=== PATIENT | female | born 1970 | race African-American/Black ===

== ENCOUNTER 2016-09-28 21:20 | Emergency (ER) | payer OTHER ==
[~2016-09-28] VITALS: Ht 149.9 cm; Wt 68.0 kg
[~2016-09-28 21:20] MED LIST: NAPR550T PO; ORPH100T PO
[2016-09-28 21:28] VITALS: BP 106/66
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
[2016-09-28] MEDS ORDERED: HYDROCODONE/APAP 5/325MG TABLET. PO ONE (22:30)
[2016-09-28] MEDS ORDERED: HYDR-971 PO (23:27)
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
== END 2016-09-28 23:40 | disposition home or self-care (01) ==
LOC: ER 21:20
DX: M25.551 Pain in right hip (principal); M25.561 Pain in right knee; G43.909 Migraine, unspecified, not intractable, without status migrainosus; J45.909 Unspecified asthma, uncomplicated; Z88.5 Allergy status to narcotic agent; V47.6XXA Car passenger injured in collision with fixed or stationary object in traffic accident, initial encounter; Y93.89 Activity, other specified; Y92.410 Unspecified street and highway as the place of occurrence of the external cause; Y99.8 Other external cause status
CPT/HCPCS: 73502; 73562; 99284

== ENCOUNTER 2017-02-07 22:35 | Emergency (ER) | payer OTHER ==
[~2017-02-07] VITALS: Ht 149.9 cm; Wt 68.0 kg
[~2017-02-07 22:35] MED LIST changes: +HYDR-971 PO
[2017-02-07 23:00] VITALS: BP 110/64
[2017-02-07] MEDS ORDERED: PREDNISONE PO (23:32)
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
== END 2017-02-07 23:57 | disposition home or self-care (01) ==
LOC: ER 22:35
DX: L23.7 Allergic contact dermatitis due to plants, except food (principal); J45.909 Unspecified asthma, uncomplicated; G43.909 Migraine, unspecified, not intractable, without status migrainosus; Z88.5 Allergy status to narcotic agent
CPT/HCPCS: 99283

== ENCOUNTER 2019-08-24 07:31 | Emergency (ER) | payer OTHER ==
[~2019-08-24] VITALS: Ht 149.9 cm; Wt 145.0 kg
[~2019-08-24 07:31] MED LIST changes: +HYDR-3164 PO; -HYDR-971 PO; +NAPR-682 PO; -NAPR550T PO; +PREDNISONE PO
[2019-08-24 07:44] VITALS: BP 110/64
--- NOTE | 2019-08-24 08:27 | RAD ---
FOOT LEFT 3V History: Left anterior foot pain. Injury. Technique: 3 views left foot. Comparison: None. Findings: Irregularity with lucency through the dorsal aspect of the navicula. Dorsal foot soft tissue swelling within this region. Normal alignment of the foot. Impression: 1. Irregularity and lucency through the dorsal aspect of the navicula, may represent fracture. Recommend correlation for point tenderness. 2. Dorsal foot soft tissue swelling. Electronically signed by: Miguel Angel Watson DO (08/24/2019 8:24 AM) [facility]
--- NOTE | 2019-08-24 09:39 | RAD ---
CT LOWER EXTREMITY WO LEFT History: Left foot injury. Possible fracture. Comparison: None. Technique: Noncontrast CT imaging was performed of the left foot. Coronal and sagittal reconstructions were performed. Exposure: One or more of the following individualized dose reduction techniques were utilized for this examination: 1. Automated exposure control 2. Adjustment of the mA and/or kV according to patient size 3. Use of iterative reconstruction technique. Findings: Acute minimally displaced dorsal navicular fracture. There is adjacent soft tissue swelling. No additional fracture. Symmetric ankle mortise. Normal alignment of the foot. Small ankle joint effusion. Mild tendinous structures appear intact. If persistent clinical concern, MRI can better evaluate. Impression: 1. Acute minimally displaced dorsal navicular fracture. Electronically signed by: Miguel Angel Watson DO (08/24/2019 9:36 AM) [facility]
[2019-08-24] MEDS ORDERED: HYDR-3164 PO (10:43)
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
== END 2019-08-24 10:57 | disposition home or self-care (01) ==
LOC: ER 07:31
DX: S92.252A Displaced fracture of navicular [scaphoid] of left foot, initial encounter for closed fracture (principal); R60.9 Edema, unspecified; J45.909 Unspecified asthma, uncomplicated; G43.909 Migraine, unspecified, not intractable, without status migrainosus; Z90.710 Acquired absence of both cervix and uterus; Z98.890 Other specified postprocedural states; Z88.5 Allergy status to narcotic agent; Z88.6 Allergy status to analgesic agent; X50.1XXA Overexertion from prolonged static or awkward postures, initial encounter; Y93.89 Activity, other specified; Y92.239 Unspecified place in hospital as the place of occurrence of the external cause; Y99.8 Other external cause status
CPT/HCPCS: 29515; 73630; 73700; 99284